=== PATIENT | female | born 1975 | race Caucasian/White ===

== ENCOUNTER → 2023-10-12 14:05 | Outpatient (REF) | payer OTHER, SELFPAY | LOC: WDC 14:05 | PROVIDERS: ATTENDING PHYSICIAN Obstetrics & Gynecology; FAMILY PHYSICIAN Family Medicine | DX: Z12.31 Encounter for screening mammogram for malignant neoplasm of breast (principal) | CPT/HCPCS: 77063; 77067 ==

== ENCOUNTER → 2024-03-22 08:41 | Outpatient (REF) | payer OTHER, SELFPAY | LOC: WDC 08:41 | PROVIDERS: ATTENDING PHYSICIAN Surgery | DX: R92.8 Other abnormal and inconclusive findings on diagnostic imaging of breast (principal) | CPT/HCPCS: 76642 ==

== ENCOUNTER → 2024-10-14 11:03 | Outpatient (REF) | payer OTHER, SELFPAY | LOC: HWWDC 11:03 | PROVIDERS: ATTENDING PHYSICIAN Obstetrics & Gynecology; FAMILY PHYSICIAN Nurse Practitioner Acute Care; REFERRING PHYSICIAN Surgery | DX: Z12.31 Encounter for screening mammogram for malignant neoplasm of breast (principal) | CPT/HCPCS: 77063; 77067 ==